=== PATIENT | male | born 1980 | race Two or more races ===

== ENCOUNTER 2018-09-23 12:00 | Inpatient (IN) | payer OTHER ==
[~2018-09-23] VITALS: Ht 157.5 cm; Wt 68.0 kg
[2018-09-23] MEDS ORDERED: CLONAZEPAM1 MG PO (13:21)
[2018-10-09] MEDS ORDERED: DOCUSATE SODIU100 MG PO (08:08)
[2018-10-09] MEDS ORDERED: GABAPENTIN800 MG PO (08:08)
[2018-10-09] MEDS ORDERED: PERCOCET 5-3251 EACH PO (08:10)
[2018-10-09] MEDS ORDERED: AMOX-CLAV 875-1 EACH PO (08:10)
[2018-10-09] MEDS ORDERED: CLONAZEPAM0.5 MG PO (08:10)
== END 2018-10-09 14:04 | disposition home or self-care (01) | DRG 455 ==
LOC: RECOVERY 10-01 12:00 → O/R 10-08 04:15 → RECOVERY 10-08 12:00 → SURH 10-08 15:36 → RECOVERY 10-08 17:30 → SURG 10-08 18:48
PROVIDERS: ADMIT Orthopaedic Surgery Orthopaedic Surgery of the Spine
PROC: 0SG0071 Fusion of Lumbar Vertebral Joint with Autologous Tissue Substitute, Posterior Approach, Posterior Column, Open Approach (ICD-10-PCS; 2018-10-08)
PROC: 0ST40ZZ Resection of Lumbosacral Disc, Open Approach (ICD-10-PCS; 2018-10-08)
PROC: 07DS3ZZ Extraction of Vertebral Bone Marrow, Percutaneous Approach (ICD-10-PCS; 2018-10-08)
PROC: 00NY0ZZ Release Lumbar Spinal Cord, Open Approach (ICD-10-PCS; 2018-10-08)
PROC: 0SG30AJ Fusion of Lumbosacral Joint with Interbody Fusion Device, Posterior Approach, Anterior Column, Open Approach (ICD-10-PCS; principal; 2018-10-08 17:30)
DX: M43.17 Spondylolisthesis, lumbosacral region (principal); M47.27 Other spondylosis with radiculopathy, lumbosacral region; M48.07 Spinal stenosis, lumbosacral region; M51.17 Intervertebral disc disorders with radiculopathy, lumbosacral region; I10 Essential (primary) hypertension